=== PATIENT | male | born 1945 | race Caucasian/White ===

== ENCOUNTER 2018-05-28 09:39 | Observation (INO) ==
[2018-05-28] MEDS ORDERED: Sod Chloride 0.9% Inj 1,000 ML IV.SIG ONE (09:50)
--- NOTE | 2018-05-28 09:56 | ED ---
HPI General Chief Complaint: Syncope Stated Complaint: syncope/ evac Time Seen by Provider: 05/28/18 09:50 History of Present Illness HPI narrative: 72-year-old male came to the emergency room brought by EMS with history of a syncopal episode while he was at [employer] store and had just got his coffee. Patient says that he felt like he was getting lethargic and spacey. Next thing he knew his legs were getting weak and could not hold him and he hit the ground and passed out. Patient thinks that he may have hit the curb outside the [address] his left eyebrow where there is an abrasion. Patient eventually got up and called his daughter to come and pick him up. His daughter is in medical field and called 911. When EMS arrived patient was awake and talking with GCS of 15. Vital signs were stable. Blood glucose was 85. The twelve-lead EKG as per them was within normal limit. Patient says that this has never happened to him before. Right now he still feels a little spacey and tired. Patient has history of hypertension and stents in the past. He denied of any chest pain or any current headache. He says that he has not taken any of his medications and treats with natural medication for past 1 year. His speech is okay and he does not experience any unilateral weakness. MD complaint: loss of consciousness and collapsed Duration of episode: 1 ( minute) -: minutes(s) (Patient says he was out for 1 minute.) Related Data Home Medications Medication Instructions Recorded Confirmed No Known Home Medications 05/28/18 05/28/18 Allergies Allergy/AdvReac Type Severity Reaction Status Date / Time paroxetine Allergy Severe VIOLENCE Unverified 05/28/18 09:55 metronidazole AdvReac Mild N/V Unverified 05/28/18 09:55 Review of Systems ROS Unobtainable All other systems reviewed negative except as stated in HPI Constitutional Reports lethargy Neurologic Reports syncope PMFSH History History Provided By: Patient Medical History Medical History Hyperlipidemia (Acute) Hypertension (Acute) Surgical History Surgical History Hx of laminectomy (Acute) Family History Family History Other Adopted Social History Social History Substance History: No History of Abuse Second Hand Smoke Exposure: No Smoking Status: Current every day smoker Tobacco Type: Cigarettes How Often Do You Have a Drink Containing Alcohol: 2 to 3 times a week Recent Travel in [facility] within the Last 8 Weeks: No Recent Out of Country Travel within the Last 8 Weeks: No Course Reevaluation(s) Reevaluation #1: I have ordered cardiac workup along with a head CT. Patient is also getting a liter of IV fluid bolus. Awaiting further workup to be resulted. Patient does not recall his last tetanus shot and hence I will give him a tetanus shot here today. My recommendation would be that given his past cardiac history patient will require admission eventually even if the workup is negative. Reevaluation #2: I just went and spoke with the patient and let him know about the admission and the test result. Patient wants to leave. His daughter is in the room who works for cardiology and she understands the reason for admission. However patient says he will take his chances but does not want to be admitted. He wants to leave AGAINST MEDICAL ADVICE. Patient is in full capacity to make decisions for himself. I have notified Dr. Wadsworth about this. She will AMA the patient Initial Documented Vital Signs Temperature 97.5 F L 05/28/18 09:45 Pulse Rate 85 05/28/18 09:45 Respiratory Rate 18 05/28/18 09:45 Blood Pressure 181/81 H 05/28/18 09:45 Pulse Oximetry 98 05/28/18 09:45 Last Documented Vital Signs Temperature 97.5 F L 05/28/18 09:45 Pulse Rate 65 05/28/18 12:03 Respiratory Rate 19 05/28/18 12:03 Blood Pressure 160/71 H 05/28/18 12:03 Pulse Oximetry 95 05/28/18 12:03 Medical Decision Making MDM Narrative Medical decision making narrative: Blood test results are back and within normal limit. Head CT and chest x-ray within normal limits. Awaiting for the hospitalist to call back for admission. Lab Data Result diagrams: 05/28/18 09:55 05/28/18 09:55 Lab Results 05/28/18 05/28/1805/28/18 Range/Units 09:55 09:55 09:55 WBC 5.2 (4.0-11.0) th/mm3 RBC 5.33 (4.50-5.90) mil/mm3 Hgb 16.8 (13.0-17.0) gm/dL Hct 48.7 (39.0-51.0) % MCV 91.4 (80.0-100.0) fL MCH 31.5 (27.0-34.0) pg MCHC 34.4 (32.0-36.0) % RDW 13.5 (11.6-17.2) % Plt Count 175 (150-450) th/mm3 MPV 9.0 (7.0-11.0) fL Neut % (Auto) 52.7 (16.0-70.0) % Lymph % (Auto) 38.0 (9.0-44.0) % [place] % (Auto) 5.3 (0.0-8.0) % Eos % (Auto) 3.1 (0.0-4.0) % Baso % (Auto) 0.9 (0.0-2.0) % Neut # (Auto) 2.7 (1.8-7.7) th/mm3 Lymph # (Auto) 2.0 (1.0-4.8) th/mm3 [place] # (Auto) 0.3 (0.0-0.9) th/mm3 Eos # (Auto) 0.2 (0.0-0.4) th/mm3 Baso # (Auto) 0.0 (0.0-0.2) th/mm3 WBC Differential . Differential Comment Auto diff final PT 9.8 (9.8-11.6) sec INR 1.0 Ratio Sodium 141 (136-145) meq/L Potassium 4.6 (3.5-5.1) meq/L Chloride 106 (98-107) meq/L Carbon Dioxide 26.1 (21.0-32.0) meq/L Anion Gap 9 (5-15) meq/L BUN 12 (7-18) mg/dL Creatinine 1.01 (0.60-1.30) mg/dL Estimated GFR 73 L (>89) mL/min Random Glucose 111 H (74-106) mg/dL Calcium 9.4 (8.5-10.1) mg/dL Magnesium 2.3 (1.5-2.5) mg/dL Total Bilirubin 0.5 (0.2-1.0) mg/dL AST 25 (15-37) U/L ALT 25 (12-78) U/L Alkaline Phosphatase 99 (45-117) U/L Troponin I Less than 0.02 L (0.02-0.05) ng/mL Total Protein 7.7 (6.4-8.2) g/dL Albumin 4.4 (3.4-5.0) g/dL Urine Color (Yellw/Straw) Urine Clarity (Clear) Urine pH (5.0-8.5) Ur Specific [place] (1.002-1.035) Urine Protein (Neg-Trace) mg/dL Urine Glucose (UA) (Negative) mg/dL Urine Ketones (Negative) mg/dL Urine Occult Blood (Negative) Urine Nitrate (Negative) Urine Bilirubin (Negative) Urine Urobilinogen (Less than 2) mg/dL Ur Leukocyte Esterase (Negative) Urine WBC (0-5) /hpf Hyaline Casts (0-3) /lpf Urine Mucus (Occasional) /lpf 05/28/18 Range/Units 13:00 WBC (4.0-11.0) th/mm3 RBC (4.50-5.90) mil/mm3 Hgb (13.0-17.0) gm/dL Hct (39.0-51.0) % MCV (80.0-100.0) fL MCH (27.0-34.0) pg MCHC (32.0-36.0) % RDW (11.6-17.2) % Plt Count (150-450) th/mm3 MPV (7.0-11.0) fL Neut % (Auto) (16.0-70.0) % Lymph % (Auto) (9.0-44.0) % [place] % (Auto) (0.0-8.0) % Eos % (Auto) (0.0-4.0) % Baso % (Auto) (0.0-2.0) % Neut # (Auto) (1.8-7.7) th/mm3 Lymph # (Auto) (1.0-4.8) th/mm3 [place] # (Auto) (0.0-0.9) th/mm3 Eos # (Auto) (0.0-0.4) th/mm3 Baso # (Auto) (0.0-0.2) th/mm3 WBC Differential Differential Comment PT (9.8-11.6) sec INR Ratio Sodium (136-145) meq/L Potassium (3.5-5.1) meq/L Chloride (98-107) meq/L Carbon Dioxide (21.0-32.0) meq/L Anion Gap (5-15) meq/L BUN (7-18) mg/dL Creatinine (0.60-1.30) mg/dL Estimated GFR (>89) mL/min Random Glucose (74-106) mg/dL Calcium (8.5-10.1) mg/dL Magnesium (1.5-2.5) mg/dL Total Bilirubin (0.2-1.0) mg/dL AST (15-37) U/L ALT (12-78) U/L Alkaline Phosphatase (45-117) U/L Troponin I (0.02-0.05) ng/mL Total Protein (6.4-8.2) g/dL Albumin (3.4-5.0) g/dL Urine Color Yellow (Yellw/Straw) Urine Clarity Hazy H (Clear) Urine pH 6.0 (5.0-8.5) Ur Specific [place] 1.013 (1.002-1.035) Urine Protein Negative (Neg-Trace) mg/dL Urine Glucose (UA) Negative (Negative) mg/dL Urine Ketones Trace (Negative) mg/dL Urine Occult Blood Negative (Negative) Urine Nitrate Negative (Negative) Urine Bilirubin Negative (Negative) Urine Urobilinogen Less than 2 (Less than 2) mg/dL Ur Leukocyte Esterase Negative (Negative) Urine WBC Less than 1 (0-5) /hpf Hyaline Casts 13 (0-3) /lpf Urine Mucus Few H (Occasional) /lpf Imaging Data Radiologist's impression: ITS Impressions Carotid Doppler Study 05/28/18 00:00 CONCLUSION: No evidence of flow-limiting carotid stenosis. Chest X-Ray 05/28/18 09:50 CONCLUSION: Minimal blunting right cost phrenic sulcus Head CT 05/28/18 09:54 CONCLUSION: Negative non-contrast CT brain for an acute process. Venancio Garber MD FACR ECG Data EKG Prior to Arrival: Yes Attestation: I personally reviewed and interpreted this ECG as follows: Interpretation: Twelve-lead EKG was reviewed by me. Normal sinus rhythm, normal axis, nonspecific ST-T wave changes. Heart rate of 77 bpm. Discharge Plan Discharge Disposition Patient Disposition: 30 Still Patient Discharge Condition Condition: Stable Discharge Order Discharge Orders: AMA Discharge (Routine); Ordered 05/28/18 Ordered By: Liliana Wadsworth Discharge Order (Routine); Ordered 05/28/18 Ordered By: Liliana Wadsworth Discharge Details Discharge Problem: Syncope, Head injury Physicians Team ED Provider: Vishal Garcia Primary Care Provider: Primary Care Eliza Newberry Attending Provider: Liliana Wadsworth Discharge Interventions Interventions: ED Discharge Assessment Last Done: 05/28/18 14:35 Vital Signs Last Done: 05/28/18 12:03 Status ED Status: Left Department
[2018-05-28] MEDS ORDERED: Tetanus/Diphtheria Toxoid Adult Vaccine Inj 0.5 ML Vial IM ONE (10:05)
[2018-05-28 10:20] LABS: Baso % (Auto) 0.9 % (0.0-2.0); Eos # (Auto) 0.2 th/mm3 (0.0-0.4); Eos % (Auto) 3.1 % (0.0-4.0); Hematocrit 48.7 % (39.0-51.0); Hemoglobin 16.8 gm/dL (13.0-17.0); Mean Corpuscular HGB Conc 34.4 % (32.0-36.0); Mean Corpuscular Hemoglobin 31.5 pg (27.0-34.0); Mean Corpuscular Volume 91.4 fL (80.0-100.0); Mono # (Auto) 0.3 th/mm3 (0.0-0.9); Mono % (Auto) 5.3 % (0.0-8.0); Neut # (Auto) 2.7 th/mm3 (1.8-7.7); Neut % (Auto) 52.7 % (16.0-70.0); Platelet Count 175 th/mm3 (150-450); Red Blood Count 5.33 mil/mm3 (4.50-5.90); Red Cell Distribution Width 13.5 % (11.6-17.2); White Blood Count 5.2 th/mm3 (4.0-11.0)
[2018-05-28 10:26] LABS: Prothrombin Time 9.8 sec (9.8-11.6)
[2018-05-28 11:16] LABS: Alanine Aminotransferase 25 U/L (12-78); Anion Gap 9 meq/L (5-15); Aspartate Aminotransferase 25 U/L (15-37); Blood Urea Nitrogen 12 mg/dL (7-18); Calcium 9.4 mg/dL (8.5-10.1); Carbon Dioxide 26.1 meq/L (21.0-32.0); Chloride 106 meq/L (98-107); Glomerular Filtration Rate 73 mL/min (>89); Glucose,Random 111 mg/dL (74-106); Magnesium 2.3 mg/dL (1.5-2.5); Potassium 4.6 meq/L (3.5-5.1); Sodium 141 meq/L (136-145)
[2018-05-28 11:17] LABS: Albumin 4.4 g/dL (3.4-5.0); Alkaline Phosphatase 99 U/L (45-117); Total Protein 7.7 g/dL (6.4-8.2)
--- NOTE | 2018-05-28 11:21 | XR ---
EXAM DATE: 05/28/2018 10:21 AM EDT AGE/SEX: 72 years / Male INDICATIONS: Shortness of breath after fall today. CLINICAL DATA: This is the patient's initial encounter. Patient reports that signs and symptoms have been present for 1 day and indicates a pain score of 0/10. MEDICAL/SURGICAL HISTORY: None. None. [place] [facility] [place]. . FINDINGS: Minimal blunting right cost phrenic sulcus. Left lung clear. The heart and pulmonary vascularity are normal. Degenerative changes present thoracic spine. CONCLUSION: Minimal blunting right cost phrenic sulcus Electronically signed by: Venancio Garber MD 05/28/2018 11:20 AM EDT
[2018-05-28] MEDS ORDERED: Bisacodyl 10 MG Supp RECTAL PRN (12:43)
[2018-05-28] MEDS ORDERED: Temazepam 15 MG Capsule PO PRN (12:43)
[2018-05-28] MEDS ORDERED: Sod Chloride 0.9% Inj 1,000 ML IV.CONT SCH (12:45)
--- NOTE | 2018-05-28 12:51 | P.HPIM ---
History of Present Illness Primary Care Physician: No Primary Care Physician Chief Complaint: dizziness History of Present Illness: The patient is a very pleasant 72-year-old male came to the emergency room brought by EMS with history of a syncopal episode while he was at [address] and had just got his coffee. Patient says that he felt like he was getting lethargic and spacey. Next thing he knew his legs were getting weak and could not hold him and he hit the ground and passed out. Patient thinks that he may have hit the curb outside the [address] his left eyebrow where there is an abrasion. Patient eventually got up and called his daughter. His daughter is in medical field and called 911. When EMS arrived patient was awake and talking with GCS of 15. Vital signs were stable. Blood glucose was 85. The twelve-lead EKG as per them was within normal limit. Patient says that this has never happened to him before. Right now he still feels a little spacey and tired. Patient has history of hypertension and stents in the past. He denied of any chest pain or any current headache. He says that he has not taken any of his medications and treats with natural medication for past 1 year. His speech is okay and he does not experience any unilateral weakness. - Inpatient Certification If this patient has been admitted as an Inpatient: I certify that the inpatient services were ordered in accordance with Medicare regulations governing the order. This includes certification that hospital inpatient services are reasonable and necessary and in the case of services not specified as inpatient-only under 42 CFR 419.22(n), that they are appropriately provided as inpatient services in accordance to with the 2-midnight benchmark under 43 CFR 412.3(e) Estimated Total Length of Stay (Days): 2 Plans for Post Hospital Care: Home Review of Systems ROS reviewed and negative except as mentioned in HPI PMFSH - History History Provided By: Patient, Family Member - Medical History Medical History: Medical History (Last Reviewed 05/28/18 @ 13:12 by Liliana Wadsworth MD) Hyperlipidemia Hypertension - Surgical History Surgical History: Surgical History (Last Reviewed 05/28/18 @ 13:12 by Liliana Wadsworth MD) Hx of laminectomy - Family History Family History: Family History (Last Reviewed 05/28/18 @ 13:12 by Liliana Wasdworth MD) Other Adopted - Tobacco History Second Hand Smoke Exposure: No Tobacco Use In Past 30 Days: Yes Smoking Status: Current every day smoker Tobacco Type: Cigarettes - Alcohol History How Often Do You Have a Drink Containing Alcohol: 2 to 3 times a week - Substance Use History Substance History: No History of Abuse - Travel History Recent Travel in the [place] Within the Last 8 Weeks: No Recent Travel Out of the Country Within the Last 8 Weeks: No - Immunization History Tetanus Immunization: Unsure Hx Influenza Vaccine This Season: No Medications and Allergies Active Medications: Active Medications Al Hydroxide/Mg Hydroxide (Milk Of Magnesia Liq) 30 ml PO Q12H PRN PRN Reason: Mild Constipation Bisacodyl (Dulcolax Supp) 10 mg RECTAL DAILY PRN PRN Reason: SEVERE CONSITIPATION Enoxaparin Sodium (Lovenox Inj) 40 mg SQ Q24H BLAKE Sodium Chloride (Ns Inj) 1,000 mls @ 100 mls/hr IV.CONT .Q10H BLAKE Lactulose (Lactulose Liq) 30 ml PO DAILY PRN PRN Reason: SEVERE CONSITIPATION Ondansetron HCl (Zofran Inj) 4 mg IV.PUSH Q6H PRN PRN Reason: NAUSEA OR VOMITING Senna/Docusate Sodium (Beth-Colace) 1 tab PO BID BLAKE Sennosides (Senokot) 17.2 mg PO Q12H PRN PRN Reason: Moderate Constipation Temazepam (Restoril) 15 mg PO HS PRN PRN Reason: INSOMNIA Allergies Allergy/AdvReac Type Severity Reaction Status Date / Time paroxetine Allergy Severe VIOLENCE Unverified 05/28/18 09:55 metronidazole AdvReac Mild N/V Unverified 05/28/18 09:55 Home Medications Medication Instructions Recorded Confirmed Type No Known Home Medications 05/28/18 05/28/18 History Exam Vital signs: Vital Signs 05/28/18 09:45 05/28/18 12:03 Temperature 97.5 F L Pulse Rate 85 65 Respiratory Rate 18 19 Blood Pressure 181/81 H 160/71 H Pulse Oximetry 98 95 Intake & Output 05/27/18 05/28/18 05/28/18 18:59 06:59 18:59 Weight 65.771 kg Narrative: GENERAL: Pleasant 72-year-old male well-nourished, well-developed patient in no apparent distress. SKIN: Warm and dry. HEAD: Atraumatic. Normocephalic. EYES: Pupils equal and round. No scleral icterus. No injection or drainage. ENT: No nasal bleeding or discharge. Mucous membranes pink and moist. NECK: Trachea midline. No JVD. CARDIOVASCULAR: Tachycardic. Regular rate and rhythm. RESPIRATORY: No accessory muscle use. Clear to auscultation. Breath sounds equal bilaterally. GASTROINTESTINAL: Abdomen soft, non-tender, nondistended. Hepatic and splenic margins not palpable. MUSCULOSKELETAL: Extremities without clubbing, cyanosis, or edema. No obvious deformities. NEUROLOGICAL: Awake and alert. No obvious cranial nerve deficits. Motor grossly within normal limits. Five out of 5 muscle strength in the arms and legs. Normal speech. PSYCHIATRIC: Appropriate mood and affect; insight and judgment normal. Results - Labs CBC & Chem 7: 05/28/18 09:55 05/28/18 09:55 Labs: Short CBC 05/28/18 Range/Units 09:55 WBC 5.2 (4.0-11.0) th/mm3 Hgb 16.8 (13.0-17.0) gm/dL Hct 48.7 (39.0-51.0) % Plt Count 175 (150-450) th/mm3 BMP 05/28/18 09:55 Sodium 141 Potassium 4.6 Chloride 106 Carbon Dioxide 26.1 BUN 12 Creatinine 1.01 Calcium 9.4 Cardiac Enzymes 05/28/18 Range/Units 09:55 Troponin I Less than 0.02 L (0.02-0.05) ng/mL Liver Function 05/28/18 Range/Units 09:55 Total Bilirubin 0.5 (0.2-1.0) mg/dL AST 25 (15-37) U/L ALT 25 (12-78) U/L Alkaline Phosphatase 99 (45-117) U/L Albumin 4.4 (3.4-5.0) g/dL - Imaging Impressions Chest X-Ray 05/28/18 09:50 CONCLUSION: Minimal blunting right cost phrenic sulcus Head CT 05/28/18 09:54 CONCLUSION: Negative non-contrast CT brain for an acute process. Venancio Garber MD FACR Caprini VTE Risk Assessment Caprini VTE Risk Assessment: Moderate/High Risk (score >= 2) Caprini Risk Assessment Model: Point Value = 1 Point Value = 2 Point Value = 3 Point Value = 5 Age 41-60 Minor surgery BMI > 25 kg/m2 Swollen legs Varicose veins or History of unexplained or recurrent spontaneous Oral contraceptives or hormone replacement Sepsis (< 1 month) Serious lung disease, including pneumonia (< 1 month) Abnormal pulmonary function Acute myocardial infarction Congestive heart failure (< 1 month) History of inflammatory bowel disease Medical patient at bed rest Age 61-74 Arthroscopic surgery Major open surgery (> 45 min) Laparoscopic surgery (> 45 min) Malignancy Confined to bed (> 72 hours) Immobilizing plaster cast Central venous access Age >= 75 History of VTE Family history of VTE Factor V Leiden Prothrombin [id number] Lupus anticoagulant Anticardiolipin antibodies Elevated serum homocysteine Heparin-induced thrombocytopenia Other congenital or acquired thrombophilia Stroke (< 1 month) Elective arthroplasty Hip, pelvis, or leg fracture Acute spinal cord injury (< 1 month) Prophylaxis Regimen: Total Risk Factor Score Risk Level Prophylaxis Regimen 0-1 Low Early ambulation 2 Moderate Order ONE of the following: *Sequential Compression Device (SCD) *Heparin 5000 units SQ BID 3-4 Higher Order ONE of the following medications: *Heparin 5000 units SQ TID *Enoxaparin/Lovenox 40 mg SQ daily (WT < 150 kg, CrCl > 30 mL/min) *Enoxaparin/Lovenox 30 mg SQ daily (WT < 150 kg, CrCl > 10-29 mL/min) *Enoxaparin/Lovenox 30 mg SQ BID (WT < 150 kg, CrCl > 30 mL/min) AND/OR *Sequential Compression Device (SCD) 5 or more Highest Order ONE of the following medications: *Heparin 5000 units SQ TID (Preferred with Epidurals) *Enoxaparin/Lovenox 40 mg SQ daily (WT < 150 kg, CrCl > 30 mL/min) *Enoxaparin/Lovenox 30 mg SQ daily (WT < 150 kg, CrCl > 10-29 mL/min) *Enoxaparin/Lovenox 30 mg SQ BID (WT < 150 kg, CrCl > 30 mL/min) AND *Sequential Compression Device (SCD) Assessment and Plan - Plan A/P Syncope and collapse EKG reviewed: Twelve-lead EKG was reviewed by me. Normal sinus rhythm, normal axis, nonspecific ST-T wave changes. Heart rate of 77 bpm. Chest X-Ray 05/28/18 : Minimal blunting right cost phrenic sulcus Head CT 05/28/18: Negative non-contrast CT brain for an acute process. Monitor on telemetry Do EEG Neuro checks Do 2D ECHO Do bilateral US carotid Monitor VS closely Restart home meds as appropriate The prophylaxis SCDs/Lovenox Note: Patient decided to leave AGAINST MEDICAL ADVICE. The patient at length and also with patient however decided to leave AMA.. Will order 2D echo also carotid ultrasounds, also patient to follow-up with his cardiology and his primary care doctor. Discussed Condition With: pt, nurse, ED physician
--- NOTE | 2018-05-28 13:30 | P.AMA ---
AMA Note - AMA Note AMA Statement: Patient Yonny Lang has decided to leave the hospital against medical advice. This patient has the capacity to refuse care and understands the risks of leaving, including permanent disability and/or , and has had an opportunity to ask questions about his/her condition. The patient has been informed that he/she may return for care at any time, and follow up has been arranged/advised. - AMA Note Discharge Disposition: Left Against Medical Advice Patient Condition on Discharge: Stable
[2018-05-28 13:31] LABS: Bilirubin,Urine Negative (Negative); Clarity,Urine Hazy (Clear); Color,Urine Yellow (Yellw/Straw); Glucose,Urine (UA) Negative (Negative); Hyaline Casts,Urine 13 /lpf (0-3); Leukocyte Esterase,Urine Negative (Negative); Mucus,Urine Few /lpf (Occasional); Nitrite,Urine Negative (Negative); Specific Gravity,Urine 1.013 (1.002-1.035)
[2018-05-28] MEDS ORDERED: Enoxaparin Inj 40 MG/0.4 ML Syringe SQ SCH (14:00)
--- NOTE | 2018-05-28 14:20 | US ---
EXAM DATE: 05/28/2018 2:13 PM EDT AGE/SEX: 72 years / Male INDICATIONS: Syncope. CLINICAL DATA: This is the patient's initial encounter. Patient reports that signs and symptoms have been present for 1 day and indicates a pain score of 0/10. MEDICAL/SURGICAL HISTORY: Hypertension. Hyperlipidemia. . Laminectomy. COMPARISON: No prior exams available for comparison. VELOCITY PARAMETERS: ICA/CCA Ratio: Right 1.1 , Left 1.9 ICA: Right 79 cm/sec, Left 93 cm/sec CCA: Right 72 cm/sec, Left 50 cm/sec ECA: Right 122 cm/sec, Left 127 cm/sec Vertebral: Right 36 cm/sec antegrade, Left 43 cm/sec antegrade FINDINGS: Right Carotid: Moderate arteriosclerotic plaque is visualized.The waveforms are within normal limits . Left Carotid: Moderate arteriosclerotic plaque is visualized. The waveforms are within normal limits . Other: None. CONCLUSION: No evidence of flow-limiting carotid stenosis. Electronically signed by: Gumaro Gates MD 05/28/2018 2:18 PM EDT
[2018-05-28] MEDS ORDERED: Senna/Docusate Sodium 8.6/50 MG Tablet PO SCH (21:00)
--- NOTE | 2018-05-29 00:04 | ECG ---
Date Performed: 05/28/2018 Time Performed: 09:52:07 PTAGE: 72 years EKG: Sinus rhythm SEPTAL MYOCARDIAL INFARCTION ABNORMAL ECG INTERPRETATION BASED ON A DEFAULT AGE OF 42 YEARS PREVIOUS TRACING : 03/27/2014 14.39 Since the previous tracing, no significant change not ed DOCTOR: Leobardo Pal Interpretating Date/Time 05/29/2018 00:04:26
== END 2018-05-28 14:35 | disposition left against medical advice (07) ==
LOC: NEPE 09:39 → NEDA 09:39
PROVIDERS: ADMIT Hospitalist; ATTEND Hospitalist